=== PATIENT | female | born 1940 | race African-American/Black ===

== ENCOUNTER 2020-11-28 10:29 | Outpatient (CLI) | payer MEDICARE, MEDICAID ==
[2020-11-28 22:12] LABS: SARS-CoV-2 PCR by NAA Not Detected (NotDetected)
== END 2020-11-28 10:30 | disposition home or self-care (01) ==
LOC: CSHLAB 10:29
PROVIDERS: ATTEND Internal Medicine Gastroenterology
DX: Z20.822 Contact with and (suspected) exposure to COVID-19 (principal); K63.5 Polyp of colon
CPT/HCPCS: 87635; U0003; U0005

== ENCOUNTER 2020-12-03 06:34 | Day surgery (SDC) | payer MEDICARE, MEDICAID ==
[2020-12-02 10:10] VITALS: BMI 35.6
[2020-12-03] MEDS ORDERED: Lidocaine 1% MPF 2 ML VIAL ONE (07:46)
[2020-12-03] MEDS ORDERED: Lidocaine 1% PF 5 ML VIAL ONE (08:28)
[2020-12-03] MEDS ORDERED: PROPOFOL 40 ML ONE (08:28)
[2020-12-03] MEDS ORDERED: PROPOFOL 20 ML ONE (09:13)
== END 2020-12-03 10:35 | disposition home or self-care (01) ==
LOC: CSHSDC 06:34
PROVIDERS: ATTEND Internal Medicine Gastroenterology
DX: Z12.11 Encounter for screening for malignant neoplasm of colon (principal); K63.5 Polyp of colon; K64.9 Unspecified hemorrhoids; K57.30 Diverticulosis of large intestine without perforation or abscess without bleeding; Z80.0 Family history of malignant neoplasm of digestive organs
CPT/HCPCS: 88305; J2704